=== PATIENT | male | born 1940 | race Caucasian/White ===

== ENCOUNTER 2023-08-11 11:24 | Outpatient (CLI) | payer MEDICARE, SELFPAY ==
--- NOTE | ~2023-08-11 | US_ITS ---
US venous doppler [facility] DATE: 08/11/2023 12:08 INDICATION: Edema of lower extremities TECHNIQUE: Real-time and color flow imaging and Doppler analysis of the veins of the lower extremitie s COMPARISON: None FINDINGS: The greater saphenous veins are patent. There is spontaneous and phasic flow and normal aug mentation and color flow signal and normal compression of the deep veins of both lower extremities. IMPRESSION: No evidence of deep venous thrombosis of the lower extremities Reviewed, dictated and finalized at Location A. Reviewed, dictated and finalized at location L.
--- NOTE | ~2023-08-11 | XR_ITS ---
XR chest 2V DATE: 08/11/2023 12:07 INDICATION: Dyspnea on exertion. Lower extremity swelling TECHNIQUE: PA and lateral views COMPARISON: None FINDINGS: Normal heart size. There is either coronary artery calcification or coronary artery stent. Is aortic calcification and mild tortuosity. The lungs are hyperinflated with relative flattening the diaphragm and prominent central pulmonary ar teries which taper fairly quickly. The findings are consistent with COPD and possible pulmonary hyper tension. No pulmonary infiltrate or consolidation, pleural effusion or pulmonary vascular congestion or pneumo thorax is detected. There is osteopenia. IMPRESSION: COPD and probable pulmonary hypertension Suspected coronary artery stents Aortic calcification and tortuosity No active pulmonary disease Reviewed, dictated and finalized at location L.
== END 2023-08-11 11:25 | disposition home or self-care (01) ==
LOC: ANHIMG 11:33
PROVIDERS: PCP Internal Medicine; Visit Provider Internal Medicine
DX: R06.09 Other forms of dyspnea (principal); R60.0 Localized edema; J44.9 Chronic obstructive pulmonary disease, unspecified; I70.0 Atherosclerosis of aorta
CPT/HCPCS: 71046; 93970

== ENCOUNTER 2023-09-02 09:47 | Outpatient (CLI) | payer MEDICARE, SELFPAY ==
--- NOTE | 2023-09-02 11:47 | WPDPFTINT ---
PFT Procedure Performed PFT Procedure Performed Plethysmography (Lung Vol) Diffusing Cap (DLCO) Flow Vol Loop Spirometry w/o Bronchodil PFT Interpretation This is a pulmonary function test with spirometry, plethysmography and diffusing capacity. The test was performed and results interpreted in accordance with the 2019 and 2005 ATS/ERS Task Force guidelines respectively using the Global Lung Function Initiative-2012 reference equations. Patient demonstrated good effort and cooperation. Reproducibility criteria were met. The quality of the spirometry maneuver was Grade A. Findings: Spirometry: There is decreased maximal expiratory airflow at all lung volumes with concave expiratory flow tracing. The FVC is 3.40 L, 85% predicted. The FEV1 is 1.13 L, 38% predicted. The FEV1: FVC ratio is 33%. Plethysmography: The total lung capacity is 8.16 L, 113% predicted. The functional residual capacity is 5.84 L, 149% predicted. The residual volume is 4.77 L, 176% predicted. Diffusing capacity: The diffusing capacity unadjusted for hemoglobin and carboxyhemoglobin is 10.8, 44% predicted. The diffusing capacity adjusted for alveolar volume is 2.03, 57% predicted. Impression: There is a very severe obstructive abnormality. The increase in residual volume is consistent with air trapping from an obstructive abnormality. Hyperinflation is present as demonstrated by the increase in functional residual capacity and is consistent with an obstructive abnormality. The diffusing capacity unadjusted for hemoglobin and carboxyhemoglobin is moderately decreased and remains moderately decreased when adjusted for alveolar volume. There are no prior studies for comparison
== END 2023-09-02 09:48 | disposition home or self-care (01) ==
LOC: ANHPFT 09:48
PROVIDERS: PCP Internal Medicine; Visit Provider Internal Medicine
DX: R06.09 Other forms of dyspnea (principal); J98.8 Other specified respiratory disorders
CPT/HCPCS: 94375; 94726; 94729

== ENCOUNTER 2024-06-29 13:12 | Outpatient (CLI) | payer MEDICARE, SELFPAY ==
--- NOTE | 2024-06-29 16:23 | WPDSIXMINUTE ---
Six Minute Walk Procedure Procedure Performed Pulmonary Stress Test (6 min walk) Six Minute Walk Six Minute Walk: This is a 6 minute walk test. The test was performed and interpreted in accordance with the 2014 ERS/ATS task force guidelines. Findings: The patient's resting room air oxygen saturation measured by pulse oximetry was 95% and heart rate was 75 bpm. Patient ambulated for 305 meters and oxygen saturation remained 92 to 94%. Heart rate at the end of the study was 95 bpm. The patient did not qualify for supplemental oxygen at rest or with ambulation. There are no prior studies for comparison.
== END 2024-06-29 13:13 | disposition home or self-care (01) ==
PROVIDERS: PCP Internal Medicine; Visit Provider Internal Medicine Pulmonary Disease
DX: J44.9 Chronic obstructive pulmonary disease, unspecified (principal)
CPT/HCPCS: 94618

== ENCOUNTER 2024-09-30 13:30 | Outpatient (RCR) | payer MEDICARE, SELFPAY ==
[2024-07-12 11:47] VITALS: PULSE 72
== END 2024-09-30 23:59 | disposition home or self-care (01) ==
LOC: ANHCPREHAB 13:30
PROVIDERS: PCP Internal Medicine; Visit Provider Internal Medicine Pulmonary Disease
DX: J44.9 Chronic obstructive pulmonary disease, unspecified (principal)
CPT/HCPCS: 94625

== ENCOUNTER 2025-01-24 13:30 | Outpatient (RCR) | payer MEDICARE, SELFPAY ==
[2024-11-10 00:03] VITALS: PULSE 72
== END 2025-01-31 14:08 | disposition home or self-care (01) ==
LOC: ANHCPREHAB 13:30
PROVIDERS: PCP Internal Medicine; Visit Provider Internal Medicine Pulmonary Disease
DX: J44.9 Chronic obstructive pulmonary disease, unspecified (principal)
CPT/HCPCS: 94625

== ENCOUNTER 2025-02-02 12:24 | Outpatient (CLI) | payer MEDICARE, SELFPAY ==
--- OUTSIDE RECORDS SUMMARY | 2025-02-02 12:46 | XMS_ITS | CONTINUITY OF CARE DOCUMENT ---
Author Name yen, yen Address Unknown Organization [facility] Address [address] [place] [address] Phone [phone] Care Team Providers Care Optical Instrument Assembler Name Role Phone León Granger MD Unavailable [phone] SHAYY SANTOS MD Unavailable SHAYY SANTOS MD Unavailable [phone] PROBLEMS Condition Status Date Provider Notes Chest pain active Chelsey Reynoso INSURANCE PROVIDERS Payer name Policy type / Coverage type Lysite red green party ID WPS SUPPLEMENT INS Commercial insurance company [id number] [place] Medicare [id number] HISTORY OF PROCEDURES Procedure Date Procedure Name Provider Procedure Notes S tatus Stress EKG Fish Adams MD complet ed Cardiolite, 2 units León Granger MD completed SPECT Images Fish Adams MD compl eted
--- OUTSIDE RECORDS SUMMARY | 2025-02-02 12:46 | XMS_ITS | Referral Summary ---
Author Organization [facility] Address [address] [place] [id number] Care Team Providers Care Fitness Professional Name Role Phone Trey Saul MD Primary Care Provide r Ashok Garland MD Unavailable [phone] Allergies No known active allergies Medications metoprolol (LOPRESSOR) 25 mg tabletIndications: hypertension take 1 tablet by oral route 2 times every day 0 0 09/25/20 16 Active lisinopril (PRINIVIL,ZESTRIL) 10 mg tabletIndications: hypertension take 1 Tablet by oral route every day 0 0 09/25/20 16 Active atorvastatin (LIPITOR) 80 mg tabletIndications: hyperlipidemia Take 1 tablet (80 mg total) by mouth daily 90 tablet 4 04/26/20 19 Active sertraline (ZOLOFT) 100 mg tabletIndications: Anxiety with Depression Take 1 tablet (100 mg total) by mouth daily 12/05/19 22 Active albuterol HFA (PROVENTIL HFA,VENTOLIN HFA,PROAIR HFA) 90 mcg/actuation inhalerIndications :Chronic Obstructive Pulmonary Disease 1 puff daily as needed SOB 08/11/20 23 Active ezetimibe (ZETIA) 10 mg tabletIndications: hyperlipidemia Take 1 tablet (10 mg total) by mouth daily 08/12/20 23 Active furosemide (LASIX) 20 mg tabletIndications: Edema TAKE 1 TABLET EVERY DAY BY ORAL ROUTE NEEDED. 07/02/20 23 Active metFORMIN (GLUCOPHAGE) 500 mg tabletIndications: type 2 diabetes mellitus Take 1 tablet (500 mg total) by mouth 2 (two) times a day 02/01/20 24 Active budesonide/glycopy r/formoterol (BREZTRI AEROSPHERE INHAL)Indications: COPD Exacerbation Inhale 2 puffs 2 (two) times a day Active aspirin 325 mg enteric coated tabletIndications: Deep Vein Thrombosis Prevention Take 1 tablet (325 mg total) by mouth daily 42 tablet 04/14/20 24 025 Active ascorbic acid (VITAMIN C) 500 mg tablet,chewableInd ications:Vitamin deficiency prevention Take 1 tablet/chew tab (500 mg total) by mouth daily 30 tablet/chew tab 04/14/20 24 Active celecoxib (CeleBREX) 200 mg capsuleIndications :Pain Take 1 capsule (200 mg total) by mouth 2 (two) times a day 84 capsule 04/14/20 24 Active ferrous sulfate 325 mg (65 mg of elemental iron) tabletIndications: Iron Deficiency Anemia,Anemia prevention Take 1 tablet (325 mg total) by mouth daily with breakfast 30 tablet 04/14/20 24 025 Active HYDROcodone-acetam inophen (NORCO) 5-325 mg per tabletIndications: Pain [The details of the medication are not available because there are pending changes by a home health clinician.] 40 tablet 04/14/20 24 Active Additional Information Patient not taking.Reported on 04/27/2024 ondansetron ODT (ZOFRAN-ODT) 4 mg disintegrating tabletIndications: nausea and vomiting Take 1 tablet (4 mg total) by mouth every 6 (six) hours as needed for nausea or vomiting 20 tablet 2 04/14/20 24 Active senna-docusate (PERICOLACE) 8.6-50 mgIndications:cons tipation [The details of the medication are not available because there are pending changes by a home health clinician.] 60 tablet 2 04/14/20 24 Active Additional Information Patient not taking.Reported on 04/27/2024 oxygenIndications: Dyspnea Administer 1-2 L/min into each nostril as needed (dyspnea). Indications: trouble breathing Active naloxone (NARCAN) 4 mg/actuation spray,non-aerosolI ndications:Opiate- Induced Respiratory Depression,Opioid Toxicity,risk mitigation for opioid overdose Administer 1 spray into affected nostril(s) as needed for opioid reversal or respiratory depression Active Active Problems Problem Noted Date Diagnosed Date Status post total replacement of right hip 06/02 Primary osteoarthritis of right hip 03/31/2024 MOCTEZUMA (dyspnea on exertion) 02/16/2023 Tobacco abuse counseling 02/03/2022 Mixed hyperlipidemia 05/14/2018 Assessment & Plan (06/15/2019 1:14 PM CDT): Improved following an increase in his Lipitor dose last year. Today his LDL is 72 mg/dL. Continue current therapy. Assessment & Plan (05/14/2018 12:12 PM CDT): LDL is 90 today. Plan: Increase Lipitor to 80 mg daily Essential hypertension 09/25/2016 Overview (01/31/2017): Essential hypertension Assessment & Plan (06/15/2019 1:14 PM CDT): Well controlled. Continue current therapy. Coronary arteriosclerosis in [place] artery 09/25 Overview (01/31/2017): Coronary arteriosclerosis in [place] artery Assessment & Plan (06/15/2019 1:14 PM CDT): Doing well. No angina. Continue current Assessment & Plan (05/14/2018 12:12 PM CDT): Stable. No angina. Continue current therapy except for Plavix which can be discontinued Resolved Problems Problem Noted Date Diagnosed Date Resolved Date MOCTEZUMA (dyspnea on exertion) 03/25/2023 Myocardial infarction 09/25/20162018 Overview (01/31/2017): Myocardial infarction Social History Tobacco Use Types Packs/Day Years Used Date Smoking Tobacco: Former Cigarettes Smokeless Tobacco: Former Quit: 04/17/2023 Tobacco Cessation:Counseling Given: Not Answered Alcohol Use Standard Drinks/Week Comments Yes 0 (1 standard drink = 0.6 oz pur e alcohol) OASIS D0700: Social Isolation Answer Da te Recorded Frequency of experiencing loneliness or isolatio n Never 05/12/2024 OASIS A1250: Transportation Answer Date Recorded Lack of Transportation (Medical) No 05/12/2024 Lack of Transportation (Non-Medical) No 05/12/2024 Patient Unable or Declines to Respond No 05/12/2024 OASIS B1300: Health Literacy Answer Alex e Recorded Frequency of needing help to read materials from doctor or pharmacy Rarely 05/12/2024 AUDIT-C Answer Date Recorded Q1: How often do you have a drink containing alcohol? Never 04/13/2024 Q2: How many drinks containi ng alcohol do you have on a typical day when you are drinking? Patient does not drink Frequency of Binge Drinking Not on file 03/26 PHQ-2 Answer Date Recorded PHQ-2 Total Score (If total score is 3 or more points, staff should administer the PHQ-9) 0 04/13/2024 Personal Safety Answer Date Recorded Have you ever been in or are you currently in a harmful physical or emotional relationship or is someone making you feel afraid or unsafe? 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 Gender Identity Not on file Sexual Orientation Not on file Last Filed Vital Signs Vital Sign Reading Time Taken Comments Blood Pressure 149/80 06/07/2024 1:09 PM CDT Pulse 62 06/07/2024 1:09 PM CDT Temperature 36.2 C (97.1 F) 05/12/2024 12:00 PM CDT Respiratory Rate 18 05/12/2024 12:00 PM CDT Oxygen Saturation 97% 05/12/2024 12:00 PM CDT Inhaled Oxygen Concentration - - Weight 89.4 kg (197 lb) 06/07/2024 1:09 PM CDT Height 180.3 cm (5' 11 ) 04/23/2024 9:14 AM CDT Body Mass Index 27.48 04/23/2024 9:14 AM CDT Plan of Treatment Not on file Medical Devices Implanted Type Area Drag Down Device Identifier Shelf Expiration Date Model / Serial / Lot [employer] [place] 56mm Sector Hip Shell Acetabular Gription Sterile Latex Free [id number] - [id number] Implanted:Qty: 1 on 04/13/2024 by Ashok Garland MD at [facility] Right: Hip [employer] [id number] 01/23/2034 [id number] / / [id number] [employer] [place] 56mm 36mm Hip Neutral Liner Acetabular Altrx Sterile Latex Free [id number] - [id number] Implanted:Qty: 1 on 04/13/2024 by Ashok Garland MD at [facility] Right: Hip [employer] [id number] 01/23/2029 [id number] / / [id number] [employer] Articul/Yong 36mm Cementless Hip +5mm 12/14 Taper Head Femoral Latex Free [id number] - [id number] Implanted:Qty: 1 on 04/13/2024 by Ashok Garland MD at [facility] Right: Hip [employer] [id number] 01/23/2029 [id number] / / [id number] Dep[employer] Actis L111 Mm Collar Hip 8 High Offset Stem Femoral [id number] - [id number] Implanted:Qty: 1 on 04/13/2024 by Ashok Garland MD at [facility] Right: Hip [employer] [id number] 12/23/2033 [id number] / / [id number] Insurance MEDICARE COMMERCIAL GENERIC MEDICARE [facility] Address: [address] [address] [place] [address] COMMERCIAL GENERIC Member Subscriber Plan / Payer (Ef fective 2016-Present) Name:Trevor Henderson Relation to Subscriber:Self Name:Trevor Henderson Payer ID:[id number] Type:COMMERCIAL Address: [address] [place] [phone] Advance Directives For more information, please contact: [phone] * Full Code (Latest Code Status on File) Date Activated Date Inactivated Comments 04/13/2024 4:25 PM 04/14/2024 8:03 PM Healthcare Agents on File Name Relationship Healthcare Agent Relationshi p Communication Mary Mora Daughter Health Care Agent Care Teams Fitness Professional Relationship Specialty Start Date End Date Trey Saul MD [address] [facility] [address] [place] [address] PCP - General Internal Medicine 02/22/24 Ashok Garland MD [address] [place] [address] [address] HAIDER [address] [place] [address] Surgeon Orthopedic Surgery 04/14/24
--- OUTSIDE RECORDS SUMMARY | 2025-02-02 12:46 | XMS_ITS | Clinical Summary ---
Author Organization [facility] D Address [address] [place] [phone] Care Team Providers Care Yacht Builder Name Role Phone Trey Saul MD Primary Care Provide r Ashok Garland MD Unavailable [phone] Allergies No known active allergies Medications metoprolol [...] controlled. Continue current therapy. Coronary arteriosclerosis in [place] artery 09/25 Overview (01/31/2017): Coronary arteriosclerosis in [place] artery Assessment & Plan (06/15/2019 1:14 PM CDT): Doing well. No angina. Continue current Assessment & Plan (05/14/2018 12:12 PM CDT): Stable. No angina. Continue current therapy except for Plavix which can be discontinued Resolved Problems Problem Noted Date Diagnosed Date Resolved Date MOCTEZUMA (dyspnea on exertion) 03/25/2023 Myocardial infarction 09/25/20162018 Overview (01/31/2017): Myocardial infarction Surgical History Surgery Date Site/Laterality Comments VASECTOMY CORONARY ANGIOPLASTY WITH STENT PLACEMENT total of 3 MOHS SURGERY Bilateral skin cancer removed from arms OTHER SURGICAL HISTORY 10/26/2006 - 10/25/2007 Bladder Cancer Surgery Medical History Medical History Date Comments Hyperlipidemia Hyperlipidemia; Comments: MMA 09/25/2016 - Type 2 diabetes mellitus (HCC) D iabetes type 2; Comments: MMA 09/25/2016 - Hypertension Hypertension Coronary artery disease Osteoarthritis Impacted cerumen Depression Covid 09/2023 HLD (hyperlipidemia) Lung disease COPD Cancer (HCC) skin cancer, nikita dder cancer Family History Medical History Relation Name Comments Coronary artery disease Father Jessie nary artery disease; Lung disease Mother Lung disease Sister Relation Name Status Comments Father (Age 96) Mother (Age 65) Sister Alive Social History Tobacco Use Types Packs/Day Years [...] on file 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 Gender Identity Not on file Sexual Orientation Not on file Obstetrics History Last Filed Vital Signs Vital Sign Reading [...] 04/23/2024 9:14 AM CDT Plan of Treatment Health Maintenance Due Date Last Done Comments Hepatitis B Screening 1960 DTaP/Tdap/Td Vaccine (1 - Tdap) 02/24/2003 3 Abdominal Aortic Aneurysm (A AA) Screen 2007 Well Visit 65+ 2007 Zoster Vaccine (2 of 3) 03/12/2012 01/16/2012 Covid-19 Vaccine (3 - 2023-2 5 season) 2024 01/14/2021, 12/06/2020 Depression Screening 03/31/2025 03/31/2024 Fall Risk Assessment 04/14/2025 04/14/2024, 03/31/20 24 Influenza Vaccine (Season Ended) 2025 07/02/2023, 07/06/2021, 07/28/2020, Additional history exists Pneumococcal vaccine 65+ Completed 018, 07/11/2018, 09/21/2016 Medical Devices Implanted Type Area Interventional Radiology Technologist Device Identifier Shelf Expiration Date Model / Serial / Lot [employer] [place] 56mm Sector Hip Shell Acetabular Gription Sterile Latex Free [id number] - [id number] Implanted:Qty: 1 on 04/13/2024 by Ashok Garland MD at [facility] Right: Hip [employer] [id number] 01/23/2034 [id number] / / [id number] [employer] [place] 56mm 36mm Hip Neutral Liner Acetabular Altrx Sterile Latex Free [id number] - [id number] Implanted:Qty: 1 on 04/13/2024 by Ashok Garland MD at [facility] Right: Hip [employer] [id number] 01/23/2029 [id number] / / [id number] [employer] Articul/Yong 36mm Cementless Hip +5mm 10/08 Taper Head Femoral Latex Free [id number] - [id number] Implanted:Qty: 1 on 04/13/2024 by Ashok Garland MD at [facility] Right: Hip [employer] [id number] 01/23/2029 [id number] / / [id number] Dep[employer] Actis L111 Mm Collar Hip 8 High Offset Stem Femoral [id number] - [id number] Implanted:Qty: 1 on 04/13/2024 by Ashok Garland MD at [facility] Right: Hip [employer] [id number] 12/23/2033 [id number] / / [id number] Insurance MEDICARE COMMERCIAL [facility] MEDICARE COMMERCIAL GENERIC Advance Directives For more information, please contact: [phone] * Full Code (Latest Code Status on File) Date Activated Date Inactivated Comments 04/13/2024 4:25 PM 04/14/2024 8:03 PM Healthcare Agents on File Name Relationship Healthcare Agent Relationsnm p Communication Mary Mora Daughter Health Care Agent Care Teams Yacht Builder Relationship Specialty Start Date End Date Trey Saul MD [address] [facility] [address] [place] [address] PCP - General Internal Medicine 02/22/24 Ashok Garland MD [address] [place] [address] [facility] [address] [address] Surgeon Orthopedic Surgery 04/14/24
--- OUTSIDE RECORDS SUMMARY | 2025-02-02 12:46 | XMS_ITS | Clinical Summary ---
Author Organization [facility] Address [address] [place] [address] Care Team Providers Care Tariff Expert Name Role Phone Obed Saul MD Primary Care Provider Source Comments [facility],non-owned Affiliates and Associated Physician Practices is amultiple site organization consisting of ambulatory clinics and hospital sitesin [place], [place]. This disclosure is being madepursuant to the Care Everywhere program and may not contain all information available regarding this patient. Last updated 18.[facility] OpenText Allergies No known active allergies Social History Tobacco Use Types Packs/Day Years Used Date Smoking Tobacco: Never Assessed Sex and Gender Information Value Date Recorded Sex Assigned at Not on file Gender Identity Not on file Sexual Orientation Not on file Last Filed Vital Signs Vital Sign Reading Time Taken Comments Blood Pressure 148/90 02/04/2024 2:30 PM CDT Pulse 64 02/04/2024 2:30 PM CDT Temperature 36.6 C (97.8 F) 02/04/2024 1:21 PM CDT Respiratory Rate 18 02/04/2024 1:27 PM CDT Oxygen Saturation 90% 02/04/2024 2:30 PM CDT Inhaled Oxygen Concentration - - Weight 87.2 kg (192 lb 4.8 oz) 02/04/2024 1:14 P M CDT Height 180.3 cm (5' 11 ) 02/04/2024 1:14 PM CDT Body Mass Index 26.82 02/04/2024 1:14 PM CDT Plan of Treatment Health Maintenance Due Date Last Done Comments MEDICARE AWV 12 MONTHS 1942 DTAP/TDAP/TD VACCINES (1 - Tdap) 1961 PNEUMOCOCCAL VACCINE 50+ (1 of 1 - PCV) 1992 ZOSTER VACCINE (1 of 2) 1992 Respiratory Syncytial Virus (RSV) Vaccine Pt: or over 60 yrs (1 - 1-dose 75+ series) 2017 COVID-19 VACCINE (1 - 2023-2 5 season) 2024 DEPRESSION SCREENING 10/26/2024 INFLUENZA VACCINE (Season Ended) 2025 HEPATITIS B VACCINE Aged Out No longe r eligible based on patient's age to complete this topic HIB VACCINE Aged Out No longer eligi ble based on patient's age to complete this topic HPV VACCINE Aged Out No longer eligi ble based on patient's age to complete this topic MENINGOCOCCAL (Group B) VACC INE SHARED DECISION-MAKING Aged Out No longer eligibl e based on patient's age to complete this topic MENINGOCOCCAL GROUPS A/C/Y/W VACCINE Aged Out No longer eligible b ased on patient's age to complete this topic Care Teams Tariff Expert Relationship Specialty Start Date End Date Obed Saul MD [address] [facility] [address] [place] [address] PCP - General Internal Medicine 02/04/24
--- NOTE | 2025-02-03 09:56 | WPDSIXMINUTE ---
Six Minute Walk Procedure Procedure Performed Pulmonary Stress Test (6 min walk) Six Minute Walk Six Minute Walk: This is a 6 minute walk test. The test was performed and interpreted in accordance with the 2014 ERS/ATS task force guidelines. Findings: The patient's resting room air oxygen saturation measured by pulse oximetry was 93%, the heart rate was 83 bpm, and the modified Baron dyspnea score was 0. Patient ambulated for 305 meters and oxygen saturation remained 90 to 92%. At the end of the study the heart rate was 99 bpm and the modified Baron dyspnea score was 2. The patient did not qualify for supplemental oxygen at rest or with ambulation. Compared to previous 6 minute walk test on 06/29/2024, the ambulatory distance was unchanged at 305 m and the hue saturation decreased from 92% to 90%.
== END 2025-02-02 12:25 | disposition home or self-care (01) ==
PROVIDERS: PCP Internal Medicine; Visit Provider Internal Medicine Pulmonary Disease
DX: J44.9 Chronic obstructive pulmonary disease, unspecified (principal)
CPT/HCPCS: 94618